=== PATIENT | female | born 1955 | race Caucasian/White ===

== ENCOUNTER → 2017-02-06 | Outpatient (CLI) | payer MEDICAID ==
[~2017-02-06] MED LIST: RT-ALBUTEROL SULF 2.5 MG/3 ML PRE-MIX VIAL IH ONE
== END ==
LOC: RT 11:27
PROVIDERS: ATTEND Nurse Practitioner Family
DX: J42 Unspecified chronic bronchitis; R06.02 Shortness of breath
CPT/HCPCS: 94060; 94640; 94726; 94729

== ENCOUNTER → 2019-02-27 | Outpatient (CLI) | payer MEDICAID ==
[~2019-02-27] MED LIST changes: -RT-ALBUTEROL SULF 2.5 MG/3 ML PRE-MIX VIAL IH ONE; +RT-ALBUTEROL SULF 2.5 MG/3 ML PRE-MIX VIAL INH ONE; +RT-ALBUTEROL SULF 2.5 MG/3 ML PRE-MIX VIAL ONE
--- NOTE | 2019-02-27 17:07 | Diagnostic Imaging Report ---
EXAM: CT CHEST SCREENING WO INDICATION: [id number] smoking history. Current smoker. COMPARISON: None. FINDINGS: 0.3 cm solid pulmonary nodule in the right lung apex. Moderate diffuse centrilobular emphysematous changes. Moderate bronchial wall thickening. No endobronchial lesions. No pleural effusion or pneumothorax. Normal heart size. No pericardial effusion. Normal caliber thoracic aorta and central pulmonary arteries. No mediastinal, hilar or axillary lymphadenopathy. Visualized upper abdominal contents are unremarkable. No acute osseous findings. IMPRESSION: 1. Solitary solid pulmonary nodule in the right lung apex measures 0.3 cm. Recommend continuing annual screening with low-dose chest CT in 12 months. 2. Moderate centrilobular emphysematous changes. LUNG RADS CATEGORY: 2. MODIFIER: None. Please note that the low-dose technique of this chest CT is of non-diagnostic quality. This study is only intended for lung cancer screening of high risk patients. Dictated by: Dictated on workstation # [id number]
== END ==
LOC: RAD 13:36
PROVIDERS: ATTEND Nurse Practitioner Family
DX: Z12.2 Encounter for screening for malignant neoplasm of respiratory organs (principal); J43.9 Emphysema, unspecified; R91.1 Solitary pulmonary nodule; F17.200 Nicotine dependence, unspecified, uncomplicated; J44.9 Chronic obstructive pulmonary disease, unspecified; G47.419 Narcolepsy without cataplexy; J42 Unspecified chronic bronchitis
CPT/HCPCS: 94060; 94726; 94729